=== PATIENT | female | born 1975 | race Caucasian/White ===

== ENCOUNTER 2019-08-04 07:12 | Observation (INO) | payer OTHER ==
--- NOTE | 2019-08-04 07:43 | ED ---
General Adult HPI - General Chief complaint: Chest Pain Stated complaint: Chest pain, SOB Time Seen by Provider: 08/04/19 07:25 Source: patient, RN notes reviewed, old records reviewed Mode of arrival: ambulatory Limitations: no limitations - History of Present Illness Initial comments: 43-year-old female presenting for evaluation of palpitations and squeezing chest pressure. Patient states her symptoms have been present for the past several days. She has a known history of these symptoms, she is unable to give them a exact name, uncertain if this is Prinzmetal angina but she states she has been worked up thoroughly by cardiology at [facility] she is currently on Benicar, cardiac, and she takes nitroglycerin for her symptoms. She has no previous stenting or coronary artery intervention. She reports some associated dyspnea with the episodes. She feels her heart is racing. Denies cough or fever. Denies abdominal pain. No vomiting or diarrhea. - Related Data Allergies Allergy/AdvReac Type Severity Reaction Status Date / Time No Known Allergies Allergy Verified 08/04/19 07:20 Review of Systems ROS Statement: Those systems with pertinent positive or pertinent negative responses have been documented in the HPI. ROS Other: All systems not noted in ROS Statement are negative. Past Medical History Past Medical History: Hypertension History of Any Multi-Drug Resistant Organisms: None Reported Past Surgical History: Tonsillectomy Past Psychological History: No Psychological Hx Reported Smoking Status: Former smoker Past Alcohol Use History: Occasional Past Drug Use History: None Reported General Exam Limitations: no limitations General appearance: alert, in no apparent distress Head exam: Present: atraumatic, normocephalic Eye exam: Present: normal appearance, PERRL ENT exam: Present: normal exam Neck exam: Present: normal inspection. Absent: tenderness, meningismus Respiratory exam: Present: normal lung sounds bilaterally. Absent: respiratory distress, wheezes Cardiovascular Exam: Present: regular rate, normal rhythm, normal heart sounds GI/Abdominal exam: Present: soft. Absent: distended, tenderness Extremities exam: Present: normal inspection, normal capillary refill. Absent: tenderness, calf tenderness Neurological exam: Present: alert, oriented X3, CN II-XII intact. Absent: motor sensory deficit Psychiatric exam: Present: anxious Skin exam: Present: warm, dry, intact. Absent: cyanosis, diaphoretic Course Vital Signs 08/04/19 08/04/19 07:16 08:00 Temperature 98 F Pulse Rate 85 75 Respiratory 18 19 Rate Blood Pressure 140/89 126/82 O2 Sat by Pulse 98 98 Oximetry EKG Findings - EKG Comments: EKG Findings:: EKG: Normal sinus rhythm, rate of 67, IL interval 154, QRS duration 78, QTC 437, no ST segment elevation or depression. Medical Decision Making - Medical Decision Making 43-year-old female presenting with squeezing chest pressure and pain and associated dyspnea. EKG is sinus rhythm with no ST segment elevation. Chest x- ray performed negative for acute cardiopulmonary disease. Patient has normal CBC, normal CMP, negative initial troponin. Patient has a reported history of previous symptoms in the past however this documentation is not available for review. Given the atypical nature of her symptoms I will keep her in observation for serial cardiac enzymes, telemetry, cardiology consultation. - Lab Data Result diagrams: 08/04/19 07:45 08/04/19 07:45 Lab Results 08/04/19 08/04/19 08/04/19 Range/Units 07:45 07:45 07:45 WBC 6.9 (3.8-10.6) k/uL RBC 4.44 (3.80-5.40) m/uL Hgb 13.6 (11.4-16.0) gm/dL Hct 40.9 (34.0-46.0) % MCV 92.1 (80.0-100.0) fL MCH 30.5 (25.0-35.0) pg MCHC 33.1 (31.0-37.0) g/dL RDW 12.8 (11.5-15.5) % Plt Count 304 (150-450) k/uL Neutrophils % 77 % Lymphocytes % 16 % Monocytes % 4 % Eosinophils % 1 % Basophils % 1 % Neutrophils # 5.3 (1.3-7.7) k/uL Lymphocytes # 1.1 (1.0-4.8) k/uL Monocytes # 0.3 (0-1.0) k/uL Eosinophils # 0.1 (0-0.7) k/uL Basophils # 0.0 (0-0.2) k/uL PT 9.5 (9.0-12.0) sec INR 0.9 (<1.2) APTT 23.7 (22.0-30.0) sec Sodium 138 (137-145) mmol/L Potassium 4.1 (3.5-5.1) mmol/L Chloride 106 (98-107) mmol/L Carbon Dioxide 25 (22-30) mmol/L Anion Gap 7 mmol/L BUN 12 (7-17) mg/dL Creatinine 0.81 (0.52-1.04) mg/dL Est GFR (CKD-EPI)AfAm >90 (>60 ml/min/1.73 sqM) Est GFR (CKD-EPI)NonAf 89 (>60 ml/min/1.73 sqM) Glucose 87 (74-99) mg/dL Calcium 9.1 (8.4-10.2) mg/dL Magnesium 2.0 (1.6-2.3) mg/dL Total Bilirubin 0.2 (0.2-1.3) mg/dL AST 16 (14-36) U/L ALT 9 (4-34) U/L Alkaline Phosphatase 46 (38-126) U/L Troponin I (0.000-0.034) ng/mL NT-Pro-B Natriuret Pep pg/mL Total Protein 6.6 (6.3-8.2) g/dL Albumin 3.8 (3.5-5.0) g/dL Lipase 134 (23-300) U/L 08/04/19 08/04/19 Range/Units 07:45 07:45 WBC (3.8-10.6) k/uL RBC (3.80-5.40) m/uL Hgb (11.4-16.0) gm/dL Hct (34.0-46.0) % MCV (80.0-100.0) fL MCH (25.0-35.0) pg MCHC (31.0-37.0) g/dL RDW (11.5-15.5) % Plt Count (150-450) k/uL Neutrophils % % Lymphocytes % % Monocytes % % Eosinophils % % Basophils % % Neutrophils # (1.3-7.7) k/uL Lymphocytes # (1.0-4.8) k/uL Monocytes # (0-1.0) k/uL Eosinophils # (0-0.7) k/uL Basophils # (0-0.2) k/uL PT (9.0-12.0) sec INR (<1.2) APTT (22.0-30.0) sec Sodium (137-145) mmol/L Potassium (3.5-5.1) mmol/L Chloride (98-107) mmol/L Carbon Dioxide (22-30) mmol/L Anion Gap mmol/L BUN (7-17) mg/dL Creatinine (0.52-1.04) mg/dL Est GFR (CKD-EPI)AfAm (>60 ml/min/1.73 sqM) Est GFR (CKD-EPI)NonAf (>60 ml/min/1.73 sqM) Glucose (74-99) mg/dL Calcium (8.4-10.2) mg/dL Magnesium (1.6-2.3) mg/dL Total Bilirubin (0.2-1.3) mg/dL AST (14-36) U/L ALT (4-34) U/L Alkaline Phosphatase (38-126) U/L Troponin I <0.012 (0.000-0.034) ng/mL NT-Pro-B Natriuret Pep 78 pg/mL Total Protein (6.3-8.2) g/dL Albumin (3.5-5.0) g/dL Lipase (23-300) U/L Disposition Clinical Impression: Chest pain Disposition: ADMITTED IP TO THIS [facility] Condition: Stable Is patient prescribed a controlled substance at d/c from ED?: No Referrals: Enrique Jackson DO [Primary Care Provider] - 1-2 days Decision to Admit Reason: Admit from EC Decision Date: 08/04/19 Decision Time: 09:05
[2019-08-04 07:58] LABS: Basophils % (A) 1 %; Eosinophils # (A) 0.1 k/uL (0-0.7); Eosinophils % (A) 1 %; HCT 40.9 % (34.0-46.0); HGB 13.6 gm/dL (11.4-16.0); Lymphocytes # (A) 1.1 k/uL (1.0-4.8); Lymphocytes % (A) 16 %; MCH 30.5 pg (25.0-35.0); MCHC 33.1 g/dL (31.0-37.0); MCV 92.1 fL (80.0-100.0); Mean Platelet Volume 7.5; Monocytes # (A) 0.3 k/uL (0-1.0); Monocytes % (A) 4 %; Neutrophils # (A) 5.3 k/uL (1.3-7.7); Neutrophils % (A) 77 %; Platelet Count 304 k/uL (150-450); RBC 4.44 m/uL (3.80-5.40); RDW 12.8 % (11.5-15.5); WBC 6.9 k/uL (3.8-10.6)
--- NOTE | 2019-08-04 08:04 | XR ---
EXAMINATION TYPE: XR chest 2V DATE OF EXAM: 08/04/2019 COMPARISON: NONE HISTORY: Chest pain. TECHNIQUE: Frontal and lateral views of the chest are obtained. FINDINGS: There is no focal air space opacity, pleural effusion, or pneumothorax seen. The cardiac silhouette size is within normal limits. S-shaped scoliosis thoracolumbar spine on frontal view. Stra ightening of spine on lateral view. Overlying EKG leads. IMPRESSION: No acute process.
[2019-08-04 08:09] LABS: INR 0.9 (<1.2); Partial Thromboplastin Time 23.7 sec (22.0-30.0); Prothrombin Time 9.5 sec (9.0-12.0)
[2019-08-04 08:14] LABS: ALT 9 U/L (4-34); AST 16 U/L (14-36); African American GFR (CKD) >90 (>60 ml/min/1.73 sqM); Albumin 3.8 g/dL (3.5-5.0); Alkaline Phosphatase 46 U/L (38-126); Anion Gap 7 mmol/L; Blood Urea Nitrogen 12 mg/dL (7-17); Calcium 9.1 mg/dL (8.4-10.2); Carbon Dioxide 25 mmol/L (22-30); Chloride 106 mmol/L (98-107); Glucose 87 mg/dL (74-99); Non-African American GFR(CKD) 89 (>60 ml/min/1.73 sqM); Potassium 4.1 mmol/L (3.5-5.1); Sodium 138 mmol/L (137-145); Total Bilirubin 0.2 mg/dL (0.2-1.3); Total Protein 6.6 g/dL (6.3-8.2)
[2019-08-04] MEDS ORDERED: ASPIRIN 325 MG TAB PO STA (09:01)
[2019-08-04] MEDS ORDERED: NITROGLYCERIN SL TABS 0.4 MG TAB SUBLINGUAL PRN ×2 (09:01→11:35)
[2019-08-04] MEDS ORDERED: NALOXONE 0.4 MG/ML 1 ML VIAL IV PRN (09:02)
[2019-08-04] MEDS ORDERED: ACETAMINOPHEN TAB 325 MG TAB PO PRN (09:02)
[2019-08-04 09:38] VITALS: BP 131/83; PULSE 74; RESP 18; TEMP 98.1
[2019-08-04] MEDS ORDERED: LORATADINE 10 MG TAB PO PRN (11:35)
[2019-08-04] MEDS ORDERED: LOSARTAN 50 MG TAB PO SCH (11:45)
[2019-08-04] MEDS ORDERED: DILTIAZEM CD 120 MG CAP.ER.24H PO SCH (11:45)
--- NOTE | 2019-08-04 12:06 | P.CRDCN ---
History of Present Illness History of present illness: HISTORY OF PRESENTING ILLNESS This is a pleasant 43-year-old female past medical history significant for hypertension. She follows in the office with Dr. Christensen out of [facility]. We have been asked to see in consultation for chest pain. She states last night after coming home from work and eating dinner she was experiencing intermittent chest pain in the mid-sternal region described as sharp and tight. The pain remained localized in the mid-sternal region and is associated with shortness of breath, slurred speech, ataxia and facial droop. She states these symptoms have subsided on their own with no reoccurrence since arriving at the hospital. She recently moved here in the last year from [place]. While living there she had a similar experience and was diagnosed with angina and advised to use nitro during these episodes. She denies ever having had a neuro logy evaluation in the past. DIAGNOSTICS EKG reveals sinus mechanism with no acute ischemic changes. Chest xray negative for an acute cardiopulmonary process. Laboratory reviewed, CBC unremarkable, sodium 138, potassium 4.1, creatinine 0.81, cardiac enzymes negative x1. Current cardiac medications include diltiazem 120 mg daily, olmesartan 20 mg daily. REVIEW OF SYSTEMS At the time of my exam: CONSTITUTIONAL: Denies fever or chills. CARDIOVASCULAR: Denies chest pain, shortness of breath, orthopnea, PND or palpitations. RESPIRATORY: Denies cough. GASTROINTESTINAL: Denies abdominal pain, diarrhea, constipation, nausea or vomiting. MUSCULOSKELETAL: Denies myalgias. NEUROLOGIC: Denies numbness, tingling or weakness. ENDOCRINE: Denies fatigue, weight change, polydipsia or polyurina. GENITOURINARY: Denies burning, hematuria or urgency with micturation. HEMATOLOGIC: Denies history of anemia or bleeding. PHYSICAL EXAMINATION Blood pressure 131/83 heart rate 74 afebrile and maintaining oxygen saturation on room air. CONSTITUTIONAL: No apparent distress. HEENT: Head is normocephalic. Pupils are equal, round. Sclerae anicteric. Mucous membranes of the mouth are moist. No JVD. No carotid bruit. CHEST EXAMINATION: Lungs are clear to auscultation. No chest wall tenderness is noted on palpation or with deep breathing. HEART EXAMINATION: Regular rate and rhythm. S1, S2 heard. No murmurs, gallops or rub. ABDOMEN: Soft, nontender. Positive bowel sounds. EXTREMITIES: 2+ peripheral pulses, no lower extremity edema and no calf tenderness. NEUROLOGIC EXAMINATION: Patient is awake, alert and oriented x3. ASSESSMENT Chest pain, atypical for angina. Hypertension PLAN No EKG evidence of ischemia. Symptoms are atypical for angina. Check d-dimer. Obtain 2D echocardiogram and doppler study to assess cardiac structure and function. Request records from her primary assembler camper for review of prior testing. Continue to obtain serial cardiac enzymes to rule out an acute event. Increase activity and ambulation in the halls. Will consider outpatient stress testing if enzymes are normal. Thank you kindly for this consultation. Nurse Practitioner note has been reviewed, I agree with a documented findings and plan of care. Patient was seen and examined. Past Medical History Past Medical History: Hypertension History of Any Multi-Drug Resistant Organisms: None Reported Past Surgical History: Tonsillectomy Additional Past Surgical History / Comment(s): lithotripsy Past Psychological History: No Psychological Hx Reported Smoking Status: Former smoker Past Alcohol Use History: Occasional Past Drug Use History: None Reported - Past Family History Father Family Medical History: Hyperlipidemia, Hypertension Mother Family Medical History: Hypertension Medications and Allergies Home Medications Medication Instructions Recorded Confirmed Type Cholecalciferol [Vitamin D3 (25 5,000 unit PO DAILY 08/04/19 08/04/19 History Mcg = 1000 Iu)] Diltiazem HCl [Cartia Xt] 120 mg PO DAILY 08/04/19 08/04/19 History Fexofenadine HCl [Sveta Allergy] 180 mg PO DAILY PRN 08/04/19 08/04/19 History Nitroglycerin Sl Tabs [Nitrostat] 0.4 mg SUBLINGUAL Q5M PRN 08/04/19 08/04/19 History Norelgestromin/Ethin.estradiol 1 patch TRANSDERM JACKSON 08/04/19 08/04/19 History [Xulane Patch] Olmesartan [Benicar] 20 mg PO DAILY 08/04/19 08/04/19 History Allergies Allergy/AdvReac Type Severity Reaction Status Date / Time No Known Allergies Allergy Verified 08/04/19 09:24 Physical Exam Vitals: Vital Signs Temp Pulse Pulse Resp BP BP Pulse Ox 08/04/19 09:36 98.1 F 74 18 131/83 100 08/04/19 09:00 97.9 F 69 14 120/84 98 08/04/19 08:00 75 19 126/82 98 08/04/19 07:16 98 F 85 18 140/89 98 Intake and Output 08/03/19 08/04/19 08/04/19 22:59 06:59 14:59 Other: Weight 52.617 kg Results 08/04/19 07:45 08/04/19 07:45 Cardiac Enzymes 08/04/19 08/04/19 Range/Units 07:45 07:45 AST 16 (14-36) U/L Troponin I <0.012 (0.000-0.034) ng/mL Coagulation 08/04/19 Range/Units 07:45 PT 9.5 (9.0-12.0) sec APTT 23.7 (22.0-30.0) sec CBC 08/04/19 Range/Units 07:45 WBC 6.9 (3.8-10.6) k/uL RBC 4.44 (3.80-5.40) m/uL Hgb 13.6 (11.4-16.0) gm/dL Hct 40.9 (34.0-46.0) % Plt Count 304 (150-450) k/uL Comprehensive Metabolic Panel 08/04/19 Range/Units 07:45 Sodium 138 (137-145) mmol/L Potassium 4.1 (3.5-5.1) mmol/L Chloride 106 (98-107) mmol/L Carbon Dioxide 25 (22-30) mmol/L BUN 12 (7-17) mg/dL Creatinine 0.81 (0.52-1.04) mg/dL Glucose 87 (74-99) mg/dL Calcium 9.1 (8.4-10.2) mg/dL AST 16 (14-36) U/L ALT 9 (4-34) U/L Alkaline Phosphatase 46 (38-126) U/L Total Protein 6.6 (6.3-8.2) g/dL Albumin 3.8 (3.5-5.0) g/dL Current Medications Generic Name Dose Route Start Last Admin Trade Name Freq PRN Reason Stop Dose Admin Acetaminophen 650 mg 08/04/19 09:02 Tylenol Tab PO Q6HR PRN Mild Pain or Fever > 100.5 Naloxone HCl 0.2 mg 08/04/19 09:02 Narcan IV Q2M PRN Opioid Reversal Nitroglycerin 0.4 mg 08/04/19 09:01 Nitrostat SUBLINGUAL Q5M PRN Chest Pain Intake and Output 08/03/19 08/04/19 08/04/19 22:59 06:59 14:59 Other: Weight 52.617 kg Patient Weight 08/05/19 06:59 Weight 52.617 kg 08/04/19 07:45 08/04/19 07:45
--- NOTE | 2019-08-04 12:37 | P.HPIM ---
History of Present Illness H&P Date: 08/04/19 Chief Complaint: chest pain HISTORY AND PHYSICAL AND DISCHARGE SUMMARY: This is a 43-year-old female patient of Dr. Jackson past medical history significant for hypertension and patient reports history of Prinzmetal angina but has never undergone heart catheterization. She denies any history of gastroesophageal reflux disease. Patient complains of chest pain that's a squeezing type chest pressure that lasts for anywhere from 5 minutes to 15 minutes. It has progressively been getting worse over the past 3 days. Last evening she states it was so severe that she was having racing heart, shortness of breath, balance issues and had to lean against the wall along with slurred speech. She states she had difficulty gathering her thoughts. Patient did not take nitroglycerin sublingual for these episodes. She follows in the office with Dr. Christensen, puzzle assembler, out of [facility] and was last seen there in January. Patient came into [facility] emergency center for evaluation. EKG reveals sinus mechanism with no acute ischemic changes. Chest xray negative for an acute cardiopulmonary process. CBC unremarkable, sodium 138, potassium 4.1, creatinine 0.81, cardiac enzymes negative x1. patient placed on the observation unit and cardiology consult requested. Patient was seen by puzzle assembler and she had a second troponin that was negative. Patient was cleared for discharge by cardiology. No medication changes have been made. Patient will be discharged home in stable condition. Review of Systems Constitutional: Denies chills, Denies fatigue, Denies fever, Denies lethargy, Denies malaise, Denies poor appetite, Denies weakness, Denies weight loss Eyes: denies blurred vision, denies pain Ears, nose, mouth and throat: Denies dysphagia, Denies headache, Denies sore throat, Denies vertigo Cardiovascular: Reports chest pain, Reports lightheadedness, Reports rapid heart beat, Reports shortness of breath, Denies decreased exercise tolerance, Denies dyspnea on exertion, Denies edema, Denies leg edema, Denies palpitations Respiratory: Denies cough, Denies cough with sputum, Denies excessive sputum, Denies hemoptysis, Denies home oxygen, Denies respiratory infections, Denies wheezing Gastrointestinal: Denies abdominal pain, Denies diarrhea, Denies loss of appetite, Denies nausea, Denies vomiting Genitourinary: Denies dysuria, Denies hematuria, Denies urgency, Denies urinary frequency Musculoskeletal: Denies frequent falls, Denies myalgias Integumentary: Denies pruritus, Denies rash, Denies wounds Neurological: Reports balance difficulties, Reports gait dysfunction, Denies numbness, Denies weakness Psychiatric: Reports anxiety, Denies depression Endocrine: Denies fatigue, Denies weight change Past Medical History Past Medical History: Hypertension Additional Past Medical History / Comment(s): Patient reported Prinzmetal angina History of Any Multi-Drug Resistant Organisms: None Reported Past Surgical History: Tonsillectomy Additional Past Surgical History / Comment(s): lithotripsy Past Psychological History: No Psychological Hx Reported Smoking Status: Former smoker Past Alcohol Use History: Occasional Additional Past Alcohol Use History / Comment(s): Patient is a lifelong nonsmoker, no marijuana, illicit drug use. Very rare alcohol use. 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 Past Drug Use History: None Reported - Past Family History Father Family Medical History: Hyperlipidemia, Hypertension Additional Family Medical History / Comment(s): Father has history of hypertension, hyperlipidemia. Mother Family Medical History: Hypertension Additional Family Medical History / Comment(s): Mother is alive with history of hypertension. Patient does not have any brothers or sisters. Patient has 2 children with no major medical problems. Medications and Allergies Home Medications Medication Instructions Recorded Confirmed Type Cholecalciferol [Vitamin D3 (25 5,000 unit PO DAILY 08/04/19 08/04/19 History Mcg = 1000 Iu)] Diltiazem HCl [Cartia Xt] 120 mg PO DAILY 08/04/19 08/04/19 History Fexofenadine HCl [Sveta Allergy] 180 mg PO DAILY PRN 08/04/19 08/04/19 History Nitroglycerin Sl Tabs [Nitrostat] 0.4 mg SUBLINGUAL Q5M PRN 08/04/19 08/04/19 History Norelgestromin/Ethin.estradiol 1 patch TRANSDERM JACKSON 08/04/19 08/04/19 History [Xulane Patch] Olmesartan [Benicar] 20 mg PO DAILY 08/04/19 08/04/19 History Allergies Allergy/AdvReac Type Severity Reaction Status Date / Time No Known Allergies Allergy Verified 08/04/19 09:24 Physical Exam Vitals: Vital Signs Temp Pulse Pulse Resp BP BP Pulse Ox 08/04/19 09:36 98.1 F 74 18 131/83 100 08/04/19 09:00 97.9 F 69 14 120/84 98 08/04/19 08:00 75 19 126/82 98 08/04/19 07:16 98 F 85 18 140/89 98 Intake and Output 08/03/19 08/04/19 08/04/19 22:59 06:59 14:59 Other: Weight 52.617 kg Gen: This is a 43-year-old female. Patient is resting in bed and appears to be comfortable and in no acute distress. HEENT: Head is atraumatic, normocephalic. Pupils equal, round. Sclerae is anicteric. NECK: Supple. No JVD. No lymphadenopathy. No thyromegaly. LUNGS: Clear to auscultation. No wheezes or rhonchi. No intercostal retractions. HEART: Regular rate and rhythm. No murmur. ABDOMEN: Soft. Bowel sounds are present. No masses. No tenderness. EXTREMITIES: No pedal edema. No calf tenderness. Dorsalis pedis +2 bilaterally. NEUROLOGICAL: Patient is awake, alert and oriented x3. Cranial nerves 2 through 12 are grossly intact. Results CBC & Chem 7: 08/04/19 07:45 08/04/19 07:45 Thrombosis Risk Factor Assmnt - DVT/VTE Prophylaxis DVT/VTE Prophylaxis: Low risk, early ambulation encouraged - Choose All That Apply Any of the Below Risk Factors Present?: Yes Each Factor Represents 1 point: Age 41-60 years Thrombosis Risk Factor Assessment Total Risk Factor Score: 1 Thrombosis Risk Factor Assessment Level: Low Risk Assessment and Plan Plan: 1. Chest pain. Cardiology consult, repeat troponins, echocardiogram. 2. Hypertension. Continue Benicar 20 mg daily, Cardizem 120 mg daily. 3. Possible Prinzmetal angina. Continue Nitrostat. Patient placed as Observation status. Discharge plan: home Impression and plan of care have been directed as dictated by the signing physician. Natalia Medina nurse practitioner acting as scribe for signing physician.
--- NOTE | 2019-08-05 10:32 | ECHOF ---
Referral Reason:cp MEASUREMENTS -------- HEIGHT: 154.9 cm WEIGHT: 52.6 kg BP: 131/83 RVIDd: 2.8 cm (< 3.3) IVSd: 0.9 cm (0.6 - 1.1) LVIDd: 4.2 cm (3.9 - 5.3) LVPWd: 0.9 cm (0.6 - 1.1) IVSs: 1.2 cm LVIDs: 2.9 cm LVPWs: 1.3 cm LA Diam: 3.0 cm (2.7 - 3.8) LAESV Index (A-L): 16.52 ml/m Ao Diam: 2.6 cm (2.0 - 3.7) AV Cusp: 1.9 cm (1.5 - 2.6) MV EXCURSION: 12.755 mm (> 18.000) MV EF SLOPE: 91 mm/s (70 - 150) EPSS: 0.8 cm MV E Jerad: 1.01 m/s MV DecT: 245 ms MV A Jerad: 0.77 m/s MV E/A Ratio: 1.31 RAP: 5.00 mmHg RVSP: 26.04 mmHg FINDINGS -------- Sinus rhythm. This was a technically good study. The left ventricular size is normal. Left ventricular wall thickness is normal. Overall left vent ricular systolic function is normal with, an EF between 55 - 60 %. The right ventricle is normal in size. Normal LA size by volume 22+/-6 ml/m2. The right atrial size is normal. Interatrial and interventricular septum intact. The aortic valve is trileaflet and appears structurally normal. There is mild aortic regurgitation. The mitral valve is normal. There is trace to mild mitral regurgitation. Mild tricuspid regurgitation present. Right ventricular systolic pressure is normal at < 35 mmHg. There is no pulmonic regurgitation present. The aortic root size is normal. Normal inferior vena cava with normal inspiratory collapse consistent with estimated right atrial pre ssure of 5 mmHg. The inferior vena cava is mildly dilated. There is no pericardial effusion. CONCLUSIONS -------- 1. Sinus rhythm. 2. The left ventricular size is normal. 3. Left ventricular wall thickness is normal. 4. Overall left ventricular systolic function is normal with, an EF between 55 - 60 %. 5. Normal LA size by volume 22+/-6 ml/m2. 6. There is mild aortic regurgitation. 7. There is trace to mild mitral regurgitation. 8. Mild tricuspid regurgitation present. 9. There is no pulmonic regurgitation present. 10. Normal inferior vena cava with normal inspiratory collapse consistent with estimated right atrial pressure of 5 mmHg. 11. The inferior vena cava is mildly dilated. 12. There is no pericardial effusion. SCHOOL PHOTOGRAPH EDITOR: Valerie Thayer RDCS
== END 2019-08-04 14:40 | disposition home or self-care (01) ==
LOC: EC 07:12 → 1SOBS 09:02
PROVIDERS: ADMIT Internal Medicine; ATTEND Internal Medicine
DX: R07.89 Other chest pain (principal); R00.2 Palpitations; R06.02 Shortness of breath; R47.81 Slurred speech; R27.0 Ataxia, unspecified; R29.810 Facial weakness; I10 Essential (primary) hypertension; Z87.891 Personal history of nicotine dependence; Z98.890 Other specified postprocedural states; Z83.438 Family history of other disorder of lipoprotein metabolism and other lipidemia; Z82.49 Family history of ischemic heart disease and other diseases of the circulatory system; Z79.3 Long term (current) use of hormonal contraceptives; Z79.899 Other long term (current) drug therapy
CPT/HCPCS: 99285; 36415; 93005; 93306; 85379; 83880; 80053; 84443; 83690; 83735; 84484; 85025; 85610; 85730; 71046; G0378

== ENCOUNTER → 2019-10-17 | Outpatient (CLI) | payer OTHER | END | disposition home or self-care (01) | LOC: LABWHC1 12:29 | PROVIDERS: ATTEND Internal Medicine Interventional Cardiology | DX: U07.1 COVID-19 (principal) ==

== ENCOUNTER 2019-10-19 11:00 | Day surgery (SDC) | payer OTHER ==
[2019-10-17 14:32] VITALS: BMI 22.3
[2019-10-19 12:04] VITALS: RESP 16; TEMP 98.1
[2019-10-19] MEDS ORDERED: IV FLUID CONTINUATION 1,000 ML IV ONE (12:15)
[2019-10-19] MEDS ORDERED: BENZOCAINE SPRAY 1 CAN MUCOUS MEM ONE (12:15)
[2019-10-19] MEDS: fentaNYL (PF) 50 MCG/ML 2 ML AMP IV ONE ×2 (12:18→12:23)
[2019-10-19] MEDS ORDERED: MIDAZOLAM 2 MG/2 ML VIAL IV ONE (12:18)
[2019-10-19] MEDS: MIDAZOLAM 2 MG/2 ML VIAL IV ONE ×2 (12:21→12:23)
--- NOTE | 2019-10-19 12:35 | P.PCN ---
Date of Procedure: 10/19/19 Operative Findings: TRANSESOPHAGEAL ECHOCARDIOGRAM EARLY CHILDHOOD SPECIAL EDUCATOR: MATIAS KABA MD, RPVI INDICATION: This is a very pleasant 43-year-old female patient was diagnosed recently was TIA and she was brought today to undergo a CHEL to rule out any cardiac source of embolization SEDATION: Conscious sedation COMPLICATION: None PROCEDURE DESCRIPTION: After obtaining an informed consent, the patient was brought to transesophageal echocardiogram room. Pulse oximetry and heart monitors were attached to the patient. The patient throat was sprayed using lidocaine. The patient was turned into left lateral position. After that a bite guard was placed. After an appropriate conscious sedation was initiated, the transesophageal echocardiogram was advanced through a bite guard into the mid esophagus. A 2-D echocardiogram images, color Doppler images, continuous wave images, pulse-wave images, of various cardiac structure were performed. After that the transesophageal echocardiogram probe was advanced into the stomach and fixed to obtain transgastric view was. The probe was brought into the mid esophagus. Inter-atrial septum was interrogated using 2D images, color Doppler images, and then contrast study. After that transesophageal echocardiogram was withdrawn out and upon withdrawing the descending thoracic aorta all the way up to the arch was evaluated. FINDING: The left ventricular dimension and systolic function appeared to be within normal limits. Ejection fraction appeared to be in the range of 50-55%. The right ventricle appeared to be of normal size and function. The left atrium and right atrium are mildly dilated. The left atrial appendage appeared to be free from any thrombus. The intra-atrial septum appeared to be intact without any evidence of shunt. The aortic valve is trileaflet valve without stenosis with mild insufficiency. The mitral valve seems to be normal with mild MR. There was mild tricuspid regurgitation and mild pulmonic insufficiency. No evidence of pericardial effusion seen. The aortic root appears to be slightly dilated. CONCLUSION: 1. No evidence of cardiac source of embolization 2. Intact interatrial septum without any evidence of shunt 3. Normal left atrial appendage without thrombus 4. Normal left ventricular dimension and systolic function 5. Slightly dilated aortic root 6. Trileaflet aortic valve without stenosis with mild insufficiency 7. Normal mitral valve leaflets with mild MR 8. Mild tricuspid insufficiency and mild pulmonic insufficiency 9. No evidence of pericardial effusion
[2019-10-19 13:56] VITALS: BP 123/72; PULSE 60
== END 2019-10-19 13:57 | disposition home or self-care (01) ==
LOC: CATHCVL 11:00
PROVIDERS: ATTEND Internal Medicine Interventional Cardiology
DX: I08.3 Combined rheumatic disorders of mitral, aortic and tricuspid valves (principal); I20.1 Angina pectoris with documented spasm; G45.9 Transient cerebral ischemic attack, unspecified; I10 Essential (primary) hypertension; Z79.899 Other long term (current) drug therapy; Z88.5 Allergy status to narcotic agent; Z82.49 Family history of ischemic heart disease and other diseases of the circulatory system
CPT/HCPCS: 93312; 93325; 81025; J2250; J3010

== ENCOUNTER → 2019-11-07 | Outpatient (CLI) | payer OTHER ==
--- NOTE | 2019-11-07 07:56 | CT ---
EXAMINATION TYPE: CT angio chest DATE OF EXAM: 11/07/2019 COMPARISON: None HISTORY: chest pain, thoracic aortic aneurysm CT DLP: 294.6 mGycm CONTRAST: CTA thoracic aorta with 3-D reconstruction is performed and without and with IV Contrast, patient inj ected with 100 mL of Isovue 370. Contrast CTA of the thoracic aorta was performed from the lung apex through the upper abdomen. 3D re construction imaging obtained at a separate workstation. CT Chest: THORACIC AORTA: No evidence for thoracic aortic aneurysm. Mild atheromatous changes seen. There is n o evidence for dissection or periaortic collection. LUNGS: The lungs are clear and free of infiltrate or atelectasis. No pulmonary nodule or mass is det ected. No pleural effusion or CT evidence of interstitial lung disease. MEDIASTINUM: No evidence for mediastinal hematoma. The heart is not enlarged. No evidence for med iastinal mass or adenopathy. HILAR STRUCTURES: No evidence for mass. No hilar adenopathy is appreciated. OTHER: No significant abnormality. IMPRESSION- No distinct abnormality of the thoracic aorta.
== END | disposition home or self-care (01) ==
LOC: RADCTMAIN 06:44
PROVIDERS: ATTEND Internal Medicine Interventional Cardiology
DX: I71.2 Thoracic aortic aneurysm, without rupture (principal); Z88.5 Allergy status to narcotic agent
CPT/HCPCS: 71275; Q9967

== ENCOUNTER 2020-02-28 13:02 | Emergency (ER) | payer OTHER ==
--- NOTE | 2020-02-28 13:42 | ED ---
General Adult HPI - General Chief complaint: Chest Pain Stated complaint: chest pain, sob, high bp Time Seen by Provider: 02/28/20 13:15 Source: patient, RN notes reviewed, old records reviewed Mode of arrival: wheelchair Limitations: no limitations - History of Present Illness Initial comments: 44-year-old female history of angina and hypertension presenting for evaluation of elevated blood pressure and chest discomfort. Patient was at work this [employer], she noted an elevated blood pressure and her chest discomfort radiating to her left arm. This did occur yesterday evening as well and was relieved by nitroglycerin. She is currently on Imdur 30 mg as well as nitroglycerin sublingual as needed for chest tightness. She is on antihypertensive medication as well and took all of her prescribed medication this morning in addition to her Benicar. 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 Patient denies associated nausea vomiting. No diaphoresis. - Related Data Home Medications Medication Instructions Recorded Confirmed Cholecalciferol [Vitamin D3 (25 5,000 unit PO DAILY 08/04/19 02/28/20 Mcg = 1000 Iu)] Fexofenadine HCl [Sveta Allergy] 180 mg PO DAILY 08/04/19 02/28/20 Norelgestromin/Ethin.estradiol 1 patch TRANSDERM JACKSON 08/04/19 02/28/20 [Xulane Patch] Isosorbide Mononitrate [Isosorbide 30 mg PO DAILY 10/17/19 02/28/20 Mononitrate ER] Diltiazem HCl [Diltiazem HCl 24Hr 180 mg PO DAILY 02/28/20 02/28/20 ER (XR)] Nitroglycerin Sl Tabs [Nitrostat] 0.4 mg SUBLINGUAL Q5M PRN 02/28/20 02/28/20 Olmesartan Medoxomil [Benicar] 20 mg PO ONCE 02/28/20 02/28/20 Allergies Allergy/AdvReac Type Severity Reaction Status Date / Time codeine Allergy Unknown Verified 02/28/20 14:13 Childhood Review of Systems ROS Statement: Those systems with pertinent positive or pertinent negative responses have been documented in the HPI. ROS Other: All systems not noted in ROS Statement are negative. 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 Mother Family Medical History: Hypertension Additional Family Medical History / Comment(s): Mother is alive with history of hypertension. Patient does not have any brothers or sisters. Patient has 2 children with no major medical problems. General Exam Limitations: no limitations General appearance: alert, in no apparent distress Head exam: Present: atraumatic, normocephalic Eye exam: Present: normal appearance, PERRL ENT exam: Present: normal exam Neck exam: Present: normal inspection, tenderness Respiratory exam: Present: normal lung sounds bilaterally. Absent: respiratory distress, wheezes Cardiovascular Exam: Present: regular rate, normal rhythm GI/Abdominal exam: Present: soft. Absent: distended, tenderness Extremities exam: Present: normal inspection, normal capillary refill, other (Bilateral brachial pulses 2+ and symmetric) Neurological exam: Present: alert, oriented X3, CN II-XII intact, motor sensory deficit Psychiatric exam: Present: normal affect, normal mood Skin exam: Present: warm, dry, intact. Absent: cyanosis, diaphoretic Course Vital Signs 02/28/20 02/28/20 02/28/20 13:03 13:38 14:00 Temperature 98.0 F Pulse Rate 89 81 78 Respiratory 18 16 15 Rate Blood Pressure 173/106 168/102 168/102 O2 Sat by Pulse 100 98 98 Oximetry EKG Findings - EKG Comments: EKG Findings:: EKG: Normal sinus rhythm, rate of 70 KS interval 138, QRS duration 90, QTC 464, no ST segment elevation Medical Decision Making - Medical Decision Making 44-year-old female presenting with elevated blood pressure, chest pain chest discomfort. Workup reveals EKG showing sinus rhythm without ST segment elevation, chest x-ray negative for acute cardiopulmonary disease. She has a negative troponin at is an outpatient and a negative troponin while in the emergency department. She has normal CBC and normal CMP. Blood pressure is down trending without specific treatment in the emergency department. I plan to admit this patient for serial cardiac enzymes, telemetry, cardiology consultation however patient wishes to be discharged. She will follow with her laborer yard as an outpatient. She is chest pain-free with improved blood pressure. - Lab Data Result diagrams: 02/28/20 13:28 02/28/20 13:28 Lab Results 02/28/20 02/28/20 02/28/20 Range/Units 13:28 13:28 13:28 WBC 8.3 (3.8-10.6) k/uL RBC 4.95 (3.80-5.40) m/uL Hgb 14.5 (11.4-16.0) gm/dL Hct 46.6 H (34.0-46.0) % MCV 94.1 (80.0-100.0) fL MCH 29.3 (25.0-35.0) pg MCHC 31.2 (31.0-37.0) g/dL RDW 12.9 (11.5-15.5) % Plt Count 385 (150-450) k/uL Neutrophils % 70 % Lymphocytes % 24 % Monocytes % 4 % Eosinophils % 1 % Basophils % 1 % Neutrophils # 5.9 (1.3-7.7) k/uL Lymphocytes # 2.0 (1.0-4.8) k/uL Monocytes # 0.3 (0-1.0) k/uL Eosinophils # 0.1 (0-0.7) k/uL Basophils # 0.1 (0-0.2) k/uL PT 9.4 (9.0-12.0) sec INR 0.9 (<1.2) APTT 24.0 (22.0-30.0) sec Sodium 137 (137-145) mmol/L Potassium 4.3 (3.5-5.1) mmol/L Chloride 102 (98-107) mmol/L Carbon Dioxide 25 (22-30) mmol/L Anion Gap 10 mmol/L BUN 10 (7-17) mg/dL Creatinine 0.77 (0.52-1.04) mg/dL Est GFR (CKD-EPI)AfAm >90 (>60 ml/min/1.73 sqM) Est GFR (CKD-EPI)NonAf >90 (>60 ml/min/1.73 sqM) Glucose 80 (74-99) mg/dL Calcium 9.6 (8.4-10.2) mg/dL Magnesium 2.1 (1.6-2.3) mg/dL Total Bilirubin 0.7 (0.2-1.3) mg/dL AST 23 (14-36) U/L ALT 9 (4-34) U/L Alkaline Phosphatase 63 (38-126) U/L Troponin I (0.000-0.034) ng/mL Total Protein 8.0 (6.3-8.2) g/dL Albumin 4.8 (3.5-5.0) g/dL Lipase 144 (23-300) U/L 02/28/20 Range/Units 13:28 WBC (3.8-10.6) k/uL RBC (3.80-5.40) m/uL Hgb (11.4-16.0) gm/dL Hct (34.0-46.0) % MCV (80.0-100.0) fL MCH (25.0-35.0) pg MCHC (31.0-37.0) g/dL RDW (11.5-15.5) % Plt Count (150-450) k/uL Neutrophils % % Lymphocytes % % Monocytes % % Eosinophils % % Basophils % % Neutrophils # (1.3-7.7) k/uL Lymphocytes # (1.0-4.8) k/uL Monocytes # (0-1.0) k/uL Eosinophils # (0-0.7) k/uL Basophils # (0-0.2) k/uL PT (9.0-12.0) sec INR (<1.2) APTT (22.0-30.0) sec Sodium (137-145) mmol/L Potassium (3.5-5.1) mmol/L Chloride (98-107) mmol/L Carbon Dioxide (22-30) mmol/L Anion Gap mmol/L BUN (7-17) mg/dL Creatinine (0.52-1.04) mg/dL Est GFR (CKD-EPI)AfAm (>60 ml/min/1.73 sqM) Est GFR (CKD-EPI)NonAf (>60 ml/min/1.73 sqM) Glucose (74-99) mg/dL Calcium (8.4-10.2) mg/dL Magnesium (1.6-2.3) mg/dL Total Bilirubin (0.2-1.3) mg/dL AST (14-36) U/L ALT (4-34) U/L Alkaline Phosphatase (38-126) U/L Troponin I <0.012 (0.000-0.034) ng/mL Total Protein (6.3-8.2) g/dL Albumin (3.5-5.0) g/dL Lipase (23-300) U/L Disposition Clinical Impression: Chest pain Disposition: HOME SELF-CARE Condition: Good Instructions (If sedation given, give patient instructions): Chest Pain (ED) Is patient prescribed a controlled substance at d/c from ED?: No Referrals: Enrique Jackson DO [Primary Care Provider] - 1-2 days Kirill Matute MD [STAFF PHYSICIAN] - 1-2 days Time of Disposition: 15:17
--- NOTE | 2020-02-28 13:50 | XR ---
EXAMINATION TYPE: XR chest 2V DATE OF EXAM: 02/28/2020 COMPARISON: 08/04/2019 TECHNIQUE: PA and lateral views submitted. HISTORY: Chest pain FINDINGS: The lungs are clear and there is no pneumothorax, pleural effusion, or focal pneumonia. Heart size normal. No overt failure. Scoliosis noted. IMPRESSION: 1. No acute process.
[2020-02-28 13:52] LABS: Basophils # (A) 0.1 k/uL (0-0.2); Basophils % (A) 1 %; Eosinophils # (A) 0.1 k/uL (0-0.7); Eosinophils % (A) 1 %; HCT 46.6 % (34.0-46.0); HGB 14.5 gm/dL (11.4-16.0); Lymphocytes % (A) 24 %; MCH 29.3 pg (25.0-35.0); MCHC 31.2 g/dL (31.0-37.0); MCV 94.1 fL (80.0-100.0); Mean Platelet Volume 7.4; Monocytes # (A) 0.3 k/uL (0-1.0); Monocytes % (A) 4 %; Neutrophils # (A) 5.9 k/uL (1.3-7.7); Neutrophils % (A) 70 %; Platelet Count 385 k/uL (150-450); RBC 4.95 m/uL (3.80-5.40); RDW 12.9 % (11.5-15.5); WBC 8.3 k/uL (3.8-10.6)
[2020-02-28 13:55] LABS: INR 0.9 (<1.2); Prothrombin Time 9.4 sec (9.0-12.0)
[2020-02-28 13:57] LABS: ALT 9 U/L (4-34); AST 23 U/L (14-36); African American GFR (CKD) >90 (>60 ml/min/1.73 sqM); Albumin 4.8 g/dL (3.5-5.0); Alkaline Phosphatase 63 U/L (38-126); Anion Gap 10 mmol/L; Blood Urea Nitrogen 10 mg/dL (7-17); Calcium 9.6 mg/dL (8.4-10.2); Carbon Dioxide 25 mmol/L (22-30); Chloride 102 mmol/L (98-107); Glucose 80 mg/dL (74-99); Magnesium 2.1 mg/dL (1.6-2.3); Non-African American GFR(CKD) >90 (>60 ml/min/1.73 sqM); Sodium 137 mmol/L (137-145); Total Bilirubin 0.7 mg/dL (0.2-1.3)
[2020-02-28 13:58] LABS: Potassium 4.3 mmol/L (3.5-5.1)
[2020-02-28 23:02] VITALS: BP 136/98; PULSE 86; RESP 18; TEMP 97
== END 2020-02-28 15:39 | disposition home or self-care (01) ==
LOC: EC 13:02
DX: R07.89 Other chest pain (principal); I10 Essential (primary) hypertension; F32.9 Major depressive disorder, single episode, unspecified; I25.2 Old myocardial infarction; Z79.899 Other long term (current) drug therapy; Z88.5 Allergy status to narcotic agent; Z82.49 Family history of ischemic heart disease and other diseases of the circulatory system
CPT/HCPCS: 36415; 71046; 80053; 83690; 83735; 84484; 85025; 85610; 85730; 93005; 99285

== ENCOUNTER → 2020-03-13 | Outpatient (CLI) | payer OTHER | END | disposition home or self-care (01) | LOC: LABWHC1 15:04 | PROVIDERS: ATTEND Pediatrics Pediatric Infectious Diseases | DX: Z03.818 Encounter for observation for suspected exposure to other biological agents ruled out (principal) | CPT/HCPCS: U0003; C9803 ==

== ENCOUNTER 2020-03-18 08:02 | Day surgery (SDC) | payer MEDICAID, OTHER ==
[2020-03-14 13:07] VITALS: BMI 21.9
[~2020-03-18 08:02] MED LIST: ALPRAZolam 0.25 MG TAB PO PRN; ALPRAZolam 0.5 MG TAB PO PRN; ASPIRIN 325 MG TAB PO ONE; NITROGLYCERIN SL TABS 0.4 MG TAB SUBLINGUAL PRN; SODIUM CHLORIDE 0.9% 1,000 ML in EMPTY BAG 1 BAG IV ONE
[2020-03-18 08:25] VITALS: RESP 18; TEMP 97.1
[2020-03-18] MEDS ORDERED: MIDAZOLAM 2 MG/2 ML VIAL IV ONE (08:42)
[2020-03-18] MEDS ORDERED: fentaNYL (PF) 50 MCG/ML 2 ML AMP IV ONE (08:43)
[2020-03-18] MEDS: LIDOCAINE 1% INJ 10MG/ML (20 ML MDV) SQ ONE ×3 (08:44→08:59)
[2020-03-18] MEDS: VERAPAMIL SYRINGE (5 MG/10 ML) INTRAARTER ONE ×2 (08:46→09:09)
[2020-03-18] MEDS ORDERED: HYDROmorphone 0.5 MG/0.5 ML SYRINGE IVP ONE (08:53)
[2020-03-18] MEDS ORDERED: IOPAMIDOL-370 125ML BTL INJ ONE (09:06)
[2020-03-18] MEDS ORDERED: SODIUM CHLORIDE 0.9% 1,000 ML IV SCH (09:15)
[2020-03-18] MEDS ORDERED: RX INFO: IV CONTRAST WAS GIVEN 1 EACH MISC MISCELLANE PRN (09:15)
--- NOTE | 2020-03-18 10:44 | CC ---
CARDIAC CATHETERIZATION REPORT CARDIAC CATHETERIZATION: DATE OF SERVICE: 03/18/2020 PERFORMING PHYSICIAN: Kirill Matute MD. PROCEDURE PERFORMED: 1. Selective right and left coronary angiogram. 2. Left heart catheterization. INDICATION: This is a 44-year-old female patient with history of parental angina as well as history of hypertension who recently was experiencing intermittent episodes of chest discomfort concerning for angina. The EKG showed some concerning ST changes. Because of that, a heart catheterization was advised. APPROACH: Right radial artery and right common femoral artery. COMPLICATION: None. LEVEL OF SEDATION: Moderate with sedation length of 26 minutes. PROCEDURE DESCRIPTION: After obtaining an informed consent, the patient was brought to the cardiac landscape laborer. Initially, the right radial artery was cannulated using micropuncture technique, the micropuncture wire passed easily, then I placed a 6-[place] sheath. I gave the patient 2 mg of verapamil IA. Unfortunately, I could not advance any catheter above the elbow and because of that, I aborted the right radial approach and I decided to go from the right groin. The right common femoral artery was cannulated using micropuncture technique, the micropuncture wire passed easily, then I placed a 6-[place] sheath. I did selective right and left coronary angiogram with JR4 and JL3.5 catheters. The procedure was completed without any complication. SELECTIVE CORONARY ANGIOGRAM: 1. The right coronary artery is a large caliber vessel. It is a dominant vessel. It is angiographically normal. Distally bifurcates into PDA and PLV branches, both appeared to be angiographically normal. 2. The left main is and is a large caliber vessel. It is angiographically normal, it bifurcates into LCX and LAD. 3. The LCX is a large caliber vessel, it is a nondominant vessel. The LCX is angiographically normal. In the proximal portion gives rise into a large OM branch which appeared to be angiographically normal. 4. The LAD, the LAD is a large caliber vessel. It is angiographically normal, it does reach the apex. Gives rise into multiple small diagonal branches. 5. HEMODYNAMICS: The LVEDP was 10 to 12 mmHg without significant gradient across the aortic valve. CONCLUSION: 1. Normal coronary angiogram. 2. Normal LVEDP. POSTPROCEDURE MANAGEMENT: 1. Continue the current medical regimen. 2. Follow up with the patient. MMODL / IJN: [id number] /
--- NOTE | 2020-03-18 11:14 | LTR ---
DATE OF SERVICE: 03/18/2020 RE: Giselle Gay Dear Dr. Jackson; Ms. Giselle Gay underwent today a heart catheterization and that revealed normal coronaries. I want to thank you for allowing us to participate in her care and please do not hesitate to call if you have any question or concern. Sincerely, MD MISAEL Sosa / JS: [id number] /
[2020-03-18] MEDS ORDERED: ACETAMINOPHEN TAB 500 MG TAB PO STA (12:49)
[2020-03-18] MEDS ORDERED: ATROPINE SULFATE 0.1 MG/ML 10ML SYRINGE ONE (15:28)
[2020-03-18 17:57] VITALS: BP 114/81; PULSE 62
== END 2020-03-18 18:12 | disposition home or self-care (01) ==
LOC: CATHCVL 08:02
PROVIDERS: ATTEND Internal Medicine Interventional Cardiology
DX: R07.89 Other chest pain (principal); I20.0 Unstable angina; R94.31 Abnormal electrocardiogram [ECG] [EKG]; I10 Essential (primary) hypertension; F43.9 Reaction to severe stress, unspecified; Z79.899 Other long term (current) drug therapy; Z79.3 Long term (current) use of hormonal contraceptives; Z88.5 Allergy status to narcotic agent; Z82.49 Family history of ischemic heart disease and other diseases of the circulatory system
CPT/HCPCS: 93458; 81025; C1769 ×4; C1894 ×2; J2250; J2001; J0461; J3010; J1170; Q9967